=== PATIENT | female | born 1990 | race Caucasian/White ===

== ENCOUNTER 2024-09-09 01:36 | Day surgery (SDC) | payer OTHER, SELFPAY ==
[2024-09-03 15:08] VITALS: BMI 24.8
--- NOTE | 2024-09-03 15:15 | PC.NURSE ---
Report to the Outpatient Waiting Room, entrance under the green pavilion located off [facility], at time _0830_ on date _[id number]_. Planned Procedure Time: __.? Time changes happen often and if your time is changed the preop area will call you the afternoon before. - You and your visitor will be asked to self-screen and do not enter if you have any COVID symptoms. Please call surgeon if you need to reschedule. - A mask is optional within the hospital at this time. Patients may have clear liquids (water, carbonated beverages, clear teas, apple juice) until 3 hours prior to surgery with a maximum of 20 ounces. - No food from midnight until time of surgery and no smoking, or chewing tobacco (or any form of nicotine). No chewing gum, candy or mints. Take only the following medications with a SIP of water on the morning of surgery: ___None____ DO NOT STOP ANY OF YOUR OTHER PRESCRIPTION MEDICATIONS PRIOR TO SURGERY EXCEPT THE FOLLOWING Hold all vitamins and supplements for 3 days per anesthesiologist. Medications to discontinue per physician Date to take last dose Please no make-up, nail bangladeshi, hairspray, perfume, deodorant, or body powder the day of surgery.? No jewelry (including any body piercings) or valuables the day of surgery, leave them at home.? Please take a shower or bath the night before, or the morning of, surgery with an antibacterial soap.? Wear comfortable, loose fitting clothing.? - Jewelry must be removed prior to entering the operating room.? Rings and piercings that are not removed may be cut off. - The hospital will not accept responsibility for valuables.? - Please leave all valuables, including medications, at home the day of surgery. If you are going home after surgery, a licensed mixer driver must drive you home.? - NO public transportation without another adult if you receive anesthesia. - We recommend that an adult stay with you for 24 hours following discharge. - We also recommend that you do not drive, make important decision, drink alcoholic beverages, or take any drugs that were not prescribed by your health care provider for at least 24 hours after your discharge time. Follow any additional instructions given to you from your surgeon. Telephone instructions given to __Emma___and asked if any additional questions and then verbalized understanding. Patient advised to call surgeon office or pre surgery nurse liaison [phone] if any additional questions.
[2024-09-09] VITALS (8 sets, daily range): BP systolic 108–126; BP diastolic 64–79; PULSE 50–98; RESP 14–24; TEMP 36.4–36.6; O2SAT 95–100
--- OUTSIDE RECORDS SUMMARY | 2024-09-09 01:39 | XMS_ITS | Clinical Summary ---
Author Organization [facility] Address [address] [place] [id number] Care Team Providers Care Manager Beverage Name Role Phone None, Provider MD Primary Care Provider Unavaila ble Allergies No known active allergies Social History Tobacco Use Types Packs/Day Years Used Date Smoking Tobacco: Never Smokeless Tobacco: Never Tobacco Cessation:Counseling Given: Not Answered Alcohol Use Standard Drinks/Week Comments Yes 0 (1 standard drink = 0.6 oz pur e alcohol) social Comments No Sex and Gender Information Value Date Recorded Sex Assigned at Not on file Legal Sex Female 8:30 PM CDT Gender Identity Not on file Sexual Orientation Not on file Last Filed Vital Signs Vital Sign Reading Time Taken Comments Blood Pressure 121/88 01/20/2024 11:59 PM CDT Pulse 72 01/20/2024 11:59 PM CDT Temperature 36.4 C (97.6 F) 01/20/2024 11:59 PM CDT Respiratory Rate 16 01/20/2024 11:59 PM CDT Oxygen Saturation 98% 01/20/2024 11:59 PM CDT Inhaled Oxygen Concentration - - Weight 61.9 kg (136 lb 7.4 oz) 01/20/2024 8:31 P M CDT Height 160 cm (5' 3 ) 01/20/2024 8:31 PM CDT Body Mass Index 24.17 01/20/2024 8:31 PM CDT Plan of Treatment Health Maintenance Due Date Last Done Comments Cervical Cancer Screening Pa p Smear (Age 30 to 64) Every 3 Years 1990 Annual Physical 1993 Hepatitis C 2008 Hepatitis B Vaccines (1 of 3 - 19+ 3-dose series) 2009 HPV Vaccines (2 - 3-dose SCD M series) 10/02/2018 09/04/2018 Cervical Cancer Screening Pa p with HPV Testing (Age 30 to 64) Every 5 Years 2020 Cervical Cancer Screening wi th HPV 2020 COVID-19 Vaccine (3 - 2023-2 5 season) 2024 09/13/2020, 08/22/2020 DTaP, Tdap and Td Vaccines ( 3 - Td or Tdap) 06/15/2028 06/15/2018, 03/29/2010 Meningococcal Vaccine Aged Out 03/29/2010 No linsey jenni eligible based on patient's age to complete this topic Meningococcal B Vaccine Aged Out No l onger eligible based on patient's age to complete this topic Pneumococcal Vaccine: Pediatrics (0 to 5 Years) and At-Risk Patients (6 to 64 Years) Aged Out No longer eligible b ased on patient's age to complete this topic RSV Immunizations Under 20 Months Aged Out No longer eligible b ased on patient's age to complete this topic Insurance [employer] Care Teams Manager Beverage Relationship Specialty Start Date End Date None, Provider, MD PCP - General UNKNOWN PHYSICIAN SPECIALTY 01/20/24
--- NOTE | 2024-09-09 09:19 | WPDANESEPPF ---
Anes - Initial Pre Proc Eval Procedure: Operation Date: 09/09/24 10:30 Proposed Procedures p Bilateral Breast Augmentation - Luis Enrique Uriarte MD Date/Time: 09/09/24 09:19 Surgeon: Luis Enrique Uriarte MD Pre Op Diagnosis: micromastia Patient Data Age: 34 Gender: F Height: 1.6 m Weight: 63.6 kg Allergies Allergy/AdvReac Type Severity Reaction Status Date / Time No Known Allergies Allergy Verified 09/03/24 15:07 Home Medications ?Medication ?Instructions ?Recorded ?Confirmed ?Type No Home Medications 09/03/24 09/03/24 History Patient hx anesthesia problems: none Family hx anesthesia problems: none Results Review: All pre-operative results and documents have been reviewed as part of the pre-operative evaluation. [facility] Social History Social History Smoking status: Never smoker Alcohol intake: current Living arrangements: with family Spiritual care concerns: No Anes - Eval Final PreProcedure Day of Procedure 09/09/24 09:19 Patient weight: normal Lungs: normal air movement Airway: Mallampati scale class 1 Neurological: alert and oriented Last oral intake: >/= 8 hours ASA classification: I Emergent: no Anesthetic plan: proceed Anesthesia type and monitoring: general LMA and standard monitoring Results Review: All pre-operative results and documents have been reviewed as part of the pre-operative evaluation. Anxiety, active in the , no cp or sob w workouts. Informed Consent: The patient's anesthetic plan and its attendant risks and benefits were discussed with the patient/family/POA. Questions were solicited and answers provided to the satisfaction of the patient/family/POA.
[2024-09-09] MEDS: LACTATED RINGERS 1,000 ML 30 ML IV CONT (09:20)
[2024-09-09 09:47] LABS: BEDSIDEPREGUCG Negative (Negative)
--- NOTE | 2024-09-09 09:55 | WPDHPUPDATE1 ---
History and Physical Update Update Date/Time: 09/09/24 09:55 History and Physical has been reviewed, including an updated exam of the patient. There are NO changes in the patient's condition. Risks, benefits, and alternatives have been discussed and questions answered. Patient agrees to proceed with procedure.
[2024-09-09] MEDS: TRANEXAMIC ACID 1,000MG/ISO100 1,000 MG/100 ML BAG 200 MG IVPB (10:05)
--- NOTE | 2024-09-09 10:12 | W.PM.PROC2 ---
Procedure Note - Detailed Date of Procedure 09/09/24 Pre-op Diagnosis micromastia Post-op Diagnosis Same Procedure Performed Bilateral breast augmentation Surgeon Luis Enrique Uriarte MD Anesthesia General Findings Bilateral Ileana Lira SoftTouch 360cc Subfascial Right: REF# [id number] SN [id number] Left: REF# [id number] SN [id number] Description of Procedure She is here today for bilateral breast augmentation. Previously and again today the risks, benefits, alternatives were discussed in extensive detail. I wanted her to be very realistic about the risks involved as well as expectations. We discussed aftercare and what to monitor for. Made sure answered all of her questions to her satisfaction today and consent was obtained. Marked in the preoperative holding area with their verification. The patient was taken to the operating room placed supine on the operating table. Anesthesia was provided by anesthesiology. A surgical time-out was taken. We cleansed the skin and 1% lidocaine and 0.25% Marcaine with epinephrine was used anesthetize as a field block. She was prepped and draped in a standard sterile fashion. Tegaderm nipple Gomez were placed. A 15 blade used to make an incision along the inframammary fold. Dissection was continued at 45 degree angle until the chest wall as identified. I elevated a subfascial pocket in the appropriate dimensions based on our preoperative planning for the implant. I then copiously irrigated with saline solution and verified a strict hemostasis. Next the use a triple antibiotic and Betadine containing solution to irrigate the pocket. I washed my gloves with the triple antibiotic and Betadine solution. We washed the implant immediately upon opening it with this solution and only opened it when we needed it. I used implant funnel and no-touch technique. The implant was introduced into the pocket using the funnel. Having verified positioning of the implant this was closed using 2-0 PDS followed by 3-0 Monocryl in a running subcuticular 4-0 Monocryl followed by tissue glue. Fluffs and surgical bra were placed. Patient was awoke and taken to PACU without difficulty. All instrument sponge counts were correct at the end of the case. Estimated Blood Loss 20 Drains No Packing No Pathology None sent Complications No immediate complications Condition Stable Disposition PACU
[2024-09-09] MEDS: LIDO 1%/EPINEPHRINE 1:100,000 20 ML VIAL 30 ML INFILTRATE (10:19)
[2024-09-09] MEDS: BUPivacaine HCL 0.25% PF 30 ML VIAL INFILTRATE (10:19)
[2024-09-09] MEDS: NACL 0.9% IRRIG POUR BOTTLE 900 ML, GENTAMICIN SULFATE INJ 160 MG, ceFAZolin 2 GM, POVI... IRRIGATION (10:19)
[2024-09-09] MEDS: ceFAZolin 2 GM/D5W 50 ML 2 GM/50 ML BAG IVPB (10:19)
[2024-09-09] MEDS: fentaNYL CITRATE INJ (*CRX) 100 MCG/2 ML VIAL 25 MCG IV PUSH ×2 (11:30→11:42)
[2024-09-09] MEDS: oxyCODONE HCL (*CRX) 5 MG TAB IR PO (12:29)
== END 2024-09-09 13:18 | disposition home or self-care (01) ==
PROVIDERS: Anesthesiology; Visit Provider Surgery Plastic and Reconstructive Surgery
PROC: (CPT 19325; principal; 2024-09-09 10:30)
DX: Z41.1 Encounter for cosmetic surgery (principal); N64.82 Hypoplasia of breast
CPT/HCPCS: 19325; A9270; J0690; J1100; J1200; J1580; J2003; J2004; J2250; J2405; J2704; J3010; J7120